=== PATIENT | female | born 1935 | race Hispanic/Latino ===

== ENCOUNTER 2017-05-26 21:10 | Emergency (ER) | payer OTHER ==
[~2017-05-26 21:10] MED LIST: ASPI-555 PO; CALC-877 PO; ENAL5TAB PO; METF500T6 PO; OMEP20CA10 PO; PRAV10TA39 PO; WHEA1POW2 PO; [UNRECOGNIZED DRUG - OTHER]
[2017-05-26] MEDS ORDERED: ACETAMINOPHEN-CODEINE ELIXIR 5 ML UDCUP ONE (22:23)
== END 2017-05-26 23:33 | disposition home or self-care (01) ==
LOC: EDH 21:10
DX: S09.8XXA Other specified injuries of head, initial encounter (principal); E11.9 Type 2 diabetes mellitus without complications; I10 Essential (primary) hypertension; M81.0 Age-related osteoporosis without current pathological fracture; W22.8XXA Striking against or struck by other objects, initial encounter; Y93.89 Activity, other specified; Y92.89 Other specified places as the place of occurrence of the external cause; Y99.8 Other external cause status
CPT/HCPCS: 70450

== ENCOUNTER 2018-08-15 14:00 | Emergency (ER) | payer OTHER ==
[~2018-08-15 14:00] MED LIST changes: +METF-444 PO; -METF500T6 PO
== END 2018-08-15 15:15 | disposition home or self-care (01) ==
LOC: EDH 14:00
DX: S00.83XA Contusion of other part of head, initial encounter (principal); S00.531A Contusion of lip, initial encounter; W18.39XA Other fall on same level, initial encounter; Y93.89 Activity, other specified; Y92.098 Other place in other non-institutional residence as the place of occurrence of the external cause; Y99.8 Other external cause status
CPT/HCPCS: 70450; 72125

== ENCOUNTER 2018-11-12 15:08 | Emergency (ER) | payer OTHER ==
[~2018-11-12 15:08] MED LIST changes: +OMEP-50 PO; -OMEP20CA10 PO
[2018-11-12] MEDS ORDERED: ACETAMINOPHEN 325 MG TAB ONE (15:54)
== END 2018-11-12 16:31 | disposition home or self-care (01) ==
LOC: EDH 15:08
DX: S89.91XA Unspecified injury of right lower leg, initial encounter (principal); M17.0 Bilateral primary osteoarthritis of knee; I10 Essential (primary) hypertension; E11.9 Type 2 diabetes mellitus without complications; M81.0 Age-related osteoporosis without current pathological fracture; Z88.8 Allergy status to other drugs, medicaments and biological substances; Z98.890 Other specified postprocedural states; W18.39XA Other fall on same level, initial encounter; Y93.89 Activity, other specified; Y92.89 Other specified places as the place of occurrence of the external cause; Y99.8 Other external cause status
CPT/HCPCS: 73562

== ENCOUNTER 2019-04-20 14:09 | Emergency (ER) | payer OTHER ==
[~2019-04-20 14:09] MED LIST changes: +OMEP-298 PO; -OMEP-50 PO
== END 2019-04-20 16:58 | disposition home or self-care (01) ==
LOC: EDH 14:09
DX: S00.83XA Contusion of other part of head, initial encounter (principal); S70.01XA Contusion of right hip, initial encounter; E11.9 Type 2 diabetes mellitus without complications; I10 Essential (primary) hypertension; M81.0 Age-related osteoporosis without current pathological fracture; Z88.8 Allergy status to other drugs, medicaments and biological substances; Z98.890 Other specified postprocedural states; W18.39XA Other fall on same level, initial encounter; Y93.89 Activity, other specified; Y92.89 Other specified places as the place of occurrence of the external cause; Y99.8 Other external cause status
CPT/HCPCS: 70450; 72125

== ENCOUNTER 2022-05-05 21:25 | Emergency (ER) | payer OTHER ==
[~2022-05-05] VITALS: Ht 152.4 cm; Wt 46.3 kg
[~2022-05-05 21:25] MED LIST changes: -ASPI-555 PO; +ASPI-556 PO; +DICY20TA2 PO; -ENAL5TAB PO; +ENAL5TAB17 PO; +LEVO-70 PO; +METR375C2 PO; -OMEP-298 PO; +OMEP20CA12 PO; +OSEL75 PO
[2022-05-05 22:02] LABS: HEMATOCRIT 32.4 % (36-48); MEAN CORPUSCULAR HGB CONC 33.6 g/dL (32.0-36.0); RED BLOOD CELL COUNT(AUTO) 3.41 MIL/uL (4.00-5.50); RED CELL DISTRIBUTION WIDTH 16.3 % (11.0-15.5); WHITE BLOOD COUNT (AUTO) 4.6 K/uL (4.8-10.8)
[2022-05-05 22:17] LABS: CREATININE 0.8 mg/dL (0.5-1.5); POTASSIUM 3.6 mmol/L (3.5-5.1)
[2022-05-05 22:21] LABS: ALBUMIN 3.5 g/dL (3.5-5.0); TOTAL PROTEIN, SERUM 6.7 g/dL (6.0-8.3)
[2022-05-05 23:00] VITALS: BP 152/66
[2022-05-05] MEDS ORDERED: ONDA4TAB10 PO (23:04)
== END 2022-05-05 23:22 | disposition home or self-care (01) ==
LOC: EDH 21:25
DX: R11.2 Nausea with vomiting, unspecified (principal); I10 Essential (primary) hypertension; E78.00 Pure hypercholesterolemia, unspecified; E11.9 Type 2 diabetes mellitus without complications; Z88.8 Allergy status to other drugs, medicaments and biological substances; Z79.84 Long term (current) use of oral hypoglycemic drugs; Z79.899 Other long term (current) drug therapy; Z90.49 Acquired absence of other specified parts of digestive tract; Z90.89 Acquired absence of other organs
CPT/HCPCS: 36415; 80053; 83690; 84484; 85027; 93005

== ENCOUNTER 2023-04-15 19:12 | Emergency (ER) | payer OTHER ==
[~2023-04-15 19:12] MED LIST changes: +ENAL-87 PO; -ENAL5TAB17 PO; +ONDA4TAB10 PO
[2023-04-15 19:59] LABS: EOSINOPHILS # (AUTO) 0.01 K/uL (0.00-0.70); EOSINOPHILS % (AUTO) 0.3 % (0.0-8.0); IMMATURE GRANULOCYTE ABSOLUTE 0.01 K/uL (0-1); LYMPHOCYTES # (AUTO) 0.3 K/uL (1.0-4.8); LYMPHOCYTES % (AUTO) 7.7 % (21.0-51.0); MEAN CORPUSCULAR HEMOGLOBIN 32.9 pg (27.0-33.0); MEAN CORPUSCULAR HGB CONC 33.4 g/dL (32.0-36.0); MEAN CORPUSCULAR VOLUME 98.5 fL (79-99); MONOCYTES # (AUTO) 0.3 K/uL (0.1-1.0); MONOCYTES % (AUTO) 10.2 % (3.0-13.0); NEUTROPHILS # (AUTO) 2.7 K/uL (1.8-7.7); NEUTROPHILS % (AUTO) 81.5 % (40.0-77.0); PLATELET COUNT (AUTO) 93 K/uL (130-400); RED BLOOD CELL COUNT(AUTO) 3.25 MIL/uL (4.00-5.50); RED CELL DISTRIBUTION WIDTH 15.2 % (11.0-15.5); WHITE BLOOD COUNT (AUTO) 3.3 K/uL (4.8-10.8)
[2023-04-15 20:12] LABS: SARS-CoV-2, RNA, NAAT POSITIVE SARS CoV-2 (NEGATIVE)
[2023-04-15 20:13] LABS: CREATININE 0.7 mg/dL (0.5-1.5); POTASSIUM 3.9 mmol/L (3.5-5.1)
[2023-04-15 20:16] LABS: INFLUENZA TYPE A Negative For Type A (NEGATIVE); INFLUENZA TYPE B Negative For Type B (NEGATIVE)
[2023-04-15 20:18] LABS: TOTAL PROTEIN, SERUM 6.5 g/dL (6.0-8.3)
[2023-04-15] MEDS ORDERED: ACETAMINOPHEN 500 MG TABLET PO ONE (20:30)
[2023-04-15] MEDS ORDERED: 0.9%NACL 1000ML 2,000 ML IV SCH (20:30)
[2023-04-15] MEDS ORDERED: IBUP-1493 PO (22:48)
[2023-04-15 23:46] VITALS: TEMP 98.7
[2023-04-15 23:47] VITALS: BP 123/63; PULSE 86; RESP 16; O2SAT 98
== END 2023-04-15 23:51 | disposition home or self-care (01) ==
LOC: EDH 19:12
DX: U07.1 COVID-19 (principal); E86.0 Dehydration; E11.9 Type 2 diabetes mellitus without complications; E78.00 Pure hypercholesterolemia, unspecified; Z79.1 Long term (current) use of non-steroidal anti-inflammatories (NSAID); Z79.82 Long term (current) use of aspirin; Z79.84 Long term (current) use of oral hypoglycemic drugs; Z79.899 Other long term (current) drug therapy; Z90.49 Acquired absence of other specified parts of digestive tract
CPT/HCPCS: 99285; 96360; 71045; 96361; 87635; 82550; 84484; 80053; 85025; 87040 ×2; 87880; 87804 ×2; 83605; 36415; 93005; C9803; J7030

== ENCOUNTER 2023-06-25 20:08 | Emergency (ER) | payer OTHER ==
[~2023-06-25] VITALS: Ht 152.4 cm; Wt 44.5 kg
[~2023-06-25 20:08] MED LIST changes: +IBUP-1493 PO
[2023-06-25 21:02] LABS: EOSINOPHILS # (AUTO) 0.01 K/uL (0.00-0.70); EOSINOPHILS % (AUTO) 0.2 % (0.0-8.0); HEMATOCRIT 34.6 % (36-48); IMMATURE GRANULOCYTE ABSOLUTE 0.02 K/uL (0-1); LYMPHOCYTES # (AUTO) 0.5 K/uL (1.0-4.8); MEAN CORPUSCULAR HEMOGLOBIN 32.2 pg (27.0-33.0); MEAN CORPUSCULAR HGB CONC 33.2 g/dL (32.0-36.0); MEAN CORPUSCULAR VOLUME 96.9 fL (79-99); MONOCYTES # (AUTO) 0.5 K/uL (0.1-1.0); NEUTROPHILS # (AUTO) 5.4 K/uL (1.8-7.7); NEUTROPHILS % (AUTO) 84.5 % (40.0-77.0); PLATELET COUNT (AUTO) 97 K/uL (130-400); RED BLOOD CELL COUNT(AUTO) 3.57 MIL/uL (4.00-5.50); RED CELL DISTRIBUTION WIDTH 14.7 % (11.0-15.5); WHITE BLOOD COUNT (AUTO) 6.4 K/uL (4.8-10.8)
[2023-06-25 21:10] VITALS: TEMP 102
[2023-06-25] MEDS: ACETAMINOPHEN 325 MG TAB PO ONE (21:10)
[2023-06-25] MEDS: 0.9%NACL 1000ML 1,000 ML IV ONE (21:10)
[2023-06-25 21:11] LABS: APPEARANCE,URINE CLEAR (CLEAR); BILIRUBIN,URINE NEGATIVE (NEGATIVE); COLOR,URINE YELLOW (YELLOW); GLUCOSE, URINE (UA) NEGATIVE (NEGATIVE); KETONES,URINE NEGATIVE (NEGATIVE); LEUKOCYTE ESTERASE ,URINE NEGATIVE Leu/uL (NEGATIVE); NITRATE,URINE NEGATIVE (NEGATIVE); OCCULT BLOOD,URINE NEGATIVE (NEGATIVE); PROTEIN,URINE NEGATIVE (NEGATIVE)
[2023-06-25 21:19] LABS: ADD UA MICROSCOPIC YES; BACTERIA,URINE RARE /HPF (None Seen); MUCUS,URINE RARE LPF (None Seen); SQUAMOUS EPITHELIAL CELL,UR RARE /HPF (0-2); WBC,URINE 0-1 /HPF (0-1)
[2023-06-25 21:19] LABS: INFLUENZA TYPE A Negative For Type A (NEGATIVE)
[2023-06-25 21:20] LABS: CREATININE 0.9 mg/dL (0.5-1.5)
[2023-06-25 21:25] LABS: ALBUMIN 3.2 g/dL (3.5-5.0); BILIRUBIN,TOTAL 0.7 mg/dL (0.2-1.0); TOTAL PROTEIN, SERUM 6.8 g/dL (6.0-8.3)
[2023-06-25] MEDS ORDERED: 0.9% NACL 500ML IV.SOLN 500 ML IV ONE (21:30)
[2023-06-25 21:33] LABS: SARS-CoV-2, RNA, NAAT NEGATIVE SARS CoV-2 (NEGATIVE)
[2023-06-25 21:35] LABS: INFLUENZA TYPE B Positive For Type B (NEGATIVE); RAPID GROUP A STREP positive (NEGATIVE)
[2023-06-25] MEDS: CEFTRIAXONE 1G VIAL IVPB ONE (22:06)
[2023-06-25 23:13] VITALS: BP 138/64; PULSE 72; RESP 18; O2SAT 98
[2023-06-25] MEDS ORDERED: OSEL75 PO (23:16)
[2023-06-25] MEDS ORDERED: ACET-2247 PO (23:16)
[2023-06-25] MEDS ORDERED: ONDA-104 PO (23:16)
[2023-06-25] MEDS ORDERED: AMOX500C2 PO (23:18)
== END 2023-06-25 23:55 | disposition home or self-care (01) ==
LOC: EDH 20:08
DX: J10.1 Influenza due to other identified influenza virus with other respiratory manifestations (principal); F03.90 Unspecified dementia, unspecified severity, without behavioral disturbance, psychotic disturbance, mood disturbance, and anxiety; I10 Essential (primary) hypertension; E11.9 Type 2 diabetes mellitus without complications; E78.00 Pure hypercholesterolemia, unspecified; F41.9 Anxiety disorder, unspecified; Z20.822 Contact with and (suspected) exposure to COVID-19; Z90.49 Acquired absence of other specified parts of digestive tract; Z79.82 Long term (current) use of aspirin; Z79.84 Long term (current) use of oral hypoglycemic drugs; Z79.899 Other long term (current) drug therapy; Z98.890 Other specified postprocedural states
CPT/HCPCS: 99285; 96374; 70450; 71045; 87635; 96361; 80053; 85025; 87040 ×2; 87880; 87804 ×2; 83605; 81001; 36415; 93005; J7030; J0696